=== PATIENT | male | born 1965 | race Caucasian/White ===

== ENCOUNTER → 2016-12-21 | Outpatient (CLI) | payer BC ==
[~2016-12-21] MED LIST: GABAPENTIN300 MG PO; LOVASTATIN40 MG PO; METFORMIN HCL500 MG PO; NEXIUM20 MG PO
== END | disposition home or self-care (01) ==
LOC: CDC 15:44
DX: M54.16 Radiculopathy, lumbar region (principal); R94.31 Abnormal electrocardiogram [ECG] [EKG]
CPT/HCPCS: 93000

== ENCOUNTER 2016-12-24 09:19 | Day surgery (SDC) | payer BC ==
[~2016-12-24] VITALS: Ht 188 cm; Wt 93.7 kg
[2016-12-24 09:48] VITALS: BP 141/85
[2016-12-24 10:53] VITALS: BP 147/82
[2016-12-24 14:00] VITALS: BP 124/75
[2016-12-24 17:52] VITALS: BP 136/74
== END 2016-12-24 18:00 | disposition home or self-care (01) ==
LOC: SDC 09:19 → 2EASTP 09:21 → SDC 11:16 → 2EASTP 18:00
DX: M51.16 Intervertebral disc disorders with radiculopathy, lumbar region (principal); E11.9 Type 2 diabetes mellitus without complications; G47.33 Obstructive sleep apnea (adult) (pediatric); E78.5 Hyperlipidemia, unspecified; Z79.84 Long term (current) use of oral hypoglycemic drugs
CPT/HCPCS: 72020; 76000; 80048; 85025; G0378; J0131; J0330; J0690; J1100; J1170; J1885; J2250; J2405; J2710; J3010; J3480; J7120